=== PATIENT | female | born 1975 | race Caucasian/White ===

== ENCOUNTER 2020-05-15 13:05 | Emergency (ER) | payer SELFPAY ==
[~2020-05-15] VITALS: Ht 172.7 cm; Wt 70.0 kg
[2020-05-15 13:07] VITALS: BP 132/78
== END 2020-05-15 13:28 | disposition left against medical advice (07) ==
LOC: ER 13:05
DX: T65.91XA Toxic effect of unspecified substance, accidental (unintentional), initial encounter (principal); X58.XXXA Exposure to other specified factors, initial encounter; Z53.21 Procedure and treatment not carried out due to patient leaving prior to being seen by health care provider